=== PATIENT | female | born 1985 | race American Indian/Alaskan Native ===

== ENCOUNTER 2019-06-24 19:34 | Emergency (ER) | payer MEDICAID, OTHER ==
--- NOTE | 2019-06-24 20:21 | Event Note ---
ED Screening Note Date of service: 06/24/19 Time: 20:20 ED Screening Note: 34 y o female presents with low bilateral pelvic pain with tender lumps This initial assessment/diagnostic orders/clinical plan/treatment(s) is/are subject to change based on patients health status, clinical progression and re- assessment by fellow clinical providers in the ED. Further treatment and workup at subsequent clinical providers discretion. Patient/guardian urged not to elope from the ED as their condition may be serious if not clinically assessed and managed. Initial orders include: ua, upt pelv us acc eval
[2019-06-24 20:47] LABS: HCG Qualitative,Urine Negative (Negative)
[2019-06-24 20:50] LABS: Bilirubin,Urine NEG (Negative); Blood,Urine MOD (Negative); Color,Urine Yellow (Yellow); Mucus,Urine 3+ /HPF; Protein,Urine <15 mg/dL mg/dL (Negative); Urobilinogen,Urine < 2.0 mg/dL (<2.0)
--- NOTE | 2019-06-24 23:13 | Ultrasound Report ---
Pelvic ultrasound INDICATION: Pelvic pain COMPARISON: None TECHNIQUE: Transabdominal study was performed. FINDINGS: Uterus measures 9.7 x 4.7 x 5.1 cm. Endometrial stripe measures 10 mm. Arising posteriorly from the fundus of the uterus a 4.8 cm leiomyoma is noted. Left ovary measures 3.3 cm in length and shows no abnormalities. Right ovary measures 3 cm in length and shows no abnormalities. No adnexal masses are seen. No free fluid is noted. IMPRESSION: No acute abnormalities are seen. Uterine leiomyoma. Signer Name: Bobby Hernandez MD Signed: 06/24/2019 11:09 PM Workstation Name: [id number]
--- NOTE | 2019-06-24 23:38 | Emergency Department Report ---
ED Abdominal Pain HPI - General Chief Complaint: Abdominal Pain Stated Complaint: LUMP ABDOMEN Time Seen by Provider: 06/24/19 20:18 Source: patient Mode of arrival: Ambulatory Limitations: No Limitations - History of Present Illness Initial Comments: Patient is a 34-year-old female who presents to emergency room with complaints of suprapubic abdominal discomfort that began several months ago. She states that she feels 2 small lumps to her lower abdomen. Patient denies any nausea, vomiting, fever, urinary symptoms, vaginal discharge, vaginal complaints. States that she does not have an MAILROOM ASSISTANT. She states that she is currently on her menstrual cycle. She denies any past medical history or allergies to medications. She states she has a past surgical history of a and tubal ligation. - Related Data Allergies Allergy/AdvReac Type Severity Reaction Status Date / Time orange Allergy Unknown Verified 06/24/19 19:38 ED Review of Systems ROS: Stated complaint: LUMP ABDOMEN Other details as noted in HPI Comment: All other systems reviewed and negative ED Past Medical Hx - Social History Smoking Status: Never Smoker Substance Use Type: Alcohol ED Physical Exam - General Limitations: No Limitations General appearance: alert, in no apparent distress - Head Head exam: Present: atraumatic, normocephalic - Eye Eye exam: Present: normal appearance - ENT ENT exam: Present: mucous membranes moist - Respiratory Respiratory exam: Present: normal lung sounds bilaterally. Absent: respiratory distress, wheezes, rales, rhonchi, stridor, chest wall tenderness, accessory muscle use, decreased breath sounds, prolonged expiratory - Cardiovascular Cardiovascular Exam: Present: regular rate, normal rhythm, normal heart sounds. Absent: systolic murmur, diastolic murmur, rubs, gallop - GI/Abdominal GI/Abdominal exam: Present: soft, normal bowel sounds, other (well healed surgical incision to the lower abdomen consistent wtih , two small areas of fibrous tissue to the end of each side of the prior incision). Absent: distended, tenderness, guarding, rebound, rigid - Neurological Exam Neurological exam: Present: alert, oriented X3 - Psychiatric Psychiatric exam: Present: normal affect, normal mood - Skin Skin exam: Present: warm, dry, intact ED Course Vital Signs 06/24/19 06/25/19 06/25/19 20:18 00:32 03:08 Temperature 99.1 F Pulse Rate 71 61 61 Respiratory 18 16 16 Rate Blood Pressure 150/104 Blood Pressure 153/96 153/96 [Right] O2 Sat by Pulse 97 99 99 Oximetry ED Medical Decision Making - Radiology Data Radiology results: report reviewed Pelvic ultrasound INDICATION: Pelvic pain COMPARISON: None TECHNIQUE: Transabdominal study was performed. FINDINGS: Uterus measures 9.7 x 4.7 x 5.1 cm. Endometrial stripe measures 10 mm. Arising posteriorly from the fundus of the uterus a 4.8 cm leiomyoma is noted. Left ovary measures 3.3 cm in length and shows no abnormalities. Right ovary measures 3 cm in length and shows no abnormalities. No adnexal masses are seen. No free fluid is noted. IMPRESSION: No acute abnormalities are seen. Uterine leiomyoma. Signer Name: Bobby Hernandez MD Signed: 06/24/2019 11:09 PM Workstation Name: [id number] Transcribed By: WILLIE Dictated By: Bobby Hernandez MD Electronically Authenticated By: Bobby Hernandez MD Signed Date/Time: 06/24/19 3761 - Medical Decision Making Patient is a 34-year-old female who presents to emergency room with complaints of suprapubic abdominal discomfort that began several months ago. She states that she feels 2 small lumps to her lower abdomen. Patient denies any nausea, vomiting, fever, urinary symptoms, vaginal discharge, vaginal complaints. States that she does not have an MAILROOM ASSISTANT. She states that she is currently on her menstrual cycle. She denies any past medical history or allergies to medications. She states she has a past surgical history of a and tubal ligation. on exam: well healed surgical incision to the lower abdomen consistent wtih , two small areas of fibrous tissue to the end of each side of the prior incision, appears that the patients lumps she was concerned about are fibrous scar tissue. UA without evidence of UTI. urine preg is negative. pelvic US: No acute abnormalities are seen. Uterine leiomyoma. discussed US results with pt. advised patient to take Tylenol or ibuprofen for pain relief. may use ice packs or heating pads to the lower abdomen. follow Up with an MAILROOM ASSISTANT in the next 2-3 days. Return to the emergency room for any new or worsening symptoms. Critical care attestation.: If time is entered above; I have spent that time in minutes in the direct care of this critically ill patient, excluding procedure time. ED Disposition Clinical Impression: Lower abdominal pain, Scar tissue Uterine fibroid Qualifiers: Uterine leiomyoma location: unspecified location Qualified Code(s): D25.9 - Leiomyoma of uterus, unspecified Disposition: TO HOME OR SELFCARE Is pt being admited?: No Does the pt Need Aspirin: No Condition: Stable Instructions: Uterine Fibroids (ED), Abdominal Pain (ED) Additional Instructions: Tylenol or ibuprofen for pain relief. may use ice packs or heating pads to the lower abdomen. follow Up with an MAILROOM ASSISTANT in the next 2-3 days. Return to the emergency room for any new or worsening symptoms. Referrals: [facility] [Provider Group] - 2-3 Days [facility] [Provider Group] - 2-3 Days [facility] [Provider Group] - 2-3 Days Forms: Work/School Release Form(ED) Time of Disposition: 23:40 Print Language: BRAZILIAN
[2019-06-25 00:33] VITALS: BP 153/96
== END 2019-06-25 00:35 | disposition home or self-care (01) ==
LOC: ED 19:34
DX: D25.9 Leiomyoma of uterus, unspecified (principal); Z91.018 Allergy to other foods
CPT/HCPCS: 76856; 81001; 81025; 99284

== ENCOUNTER 2019-08-13 10:54 | Emergency (ER) | payer OTHER ==
--- NOTE | 2019-08-13 11:26 | Event Note ---
ED Screening Note Date of service: 08/13/19 Time: :22 ED Screening Note: 34 y o female presents with cough, fever x 2 days presents with all 3 shildren with similar symptoms PMH: CHF/HTN, High Cholesterol, no current meds, recent move from [place] cc of generalized pain This initial assessment/diagnostic orders/clinical plan/treatment(s) is/are subject to change based on patients health status, clinical progression and re- assessment by fellow clinical providers in the ED. Further treatment and workup at subsequent clinical providers discretion. Patient/guardian urged not to elope from the ED as their condition may be serious if not clinically assessed and managed. Initial orders include: cxr meds acc eval
--- NOTE | 2019-08-13 12:37 | XRay Report ---
CHEST 2 VIEWS INDICATION / CLINICAL INFORMATION: cough/fever. COMPARISON: None available. FINDINGS: SUPPORT DEVICES: None. HEART / MEDIASTINUM: No significant abnormality. LUNGS / PLEURA: No significant pulmonary or pleural abnormality. No pneumothorax. ADDITIONAL FINDINGS: No significant additional findings. IMPRESSION: 1. No acute abnormality of the chest. Signer Name: Fahad Urbina MD Signed: 08/13/2019 12:32 PM Workstation Name: [id number]
--- NOTE | 2019-08-13 13:07 | Emergency Department Report ---
- General Chief Complaint: Upper Respiratory Infection Stated Complaint: FLU SX Time Seen by Provider: 08/13/19 12:28 Source: patient Mode of arrival: Ambulatory Limitations: No Limitations - History of Present Illness Initial Comments: 34-year-old female presents emergency department with a history of cough congestion coryza myalgias chills the nausea and a few episodes of vomiting with the coughing spells. No hemoptysis, hematemesis nor hematochezia. No rash, sweats no chest pain. MD Complaint: cough, rhinorrhea, nasal congestion Severity: mild Quality: dull Consistency: constant Improves With: nothing Worsens With: nothing Associated Symptoms: chills, rhinorrhea, nasal congestion. denies: myalgias, diaphoresis, shortness of breath, abdominal pain, dysuria, right sweats, weight loss, epistaxis, hoarseness - Related Data Previous Rx's Medication Instructions Recorded Last Taken Type Ondansetron [Zofran ODT TAB] 8 mg PO Q12HR #14 tab.rapdis 08/13/19 Unknown Rx guaiFENesin/CODEINE [Robitussin AC] 5 ml PO Q6H PRN #120 ml 08/13/19 Unknown Rx predniSONE [Deltasone] 50 mg PO QDAY #5 tab 08/13/19 Unknown Rx Allergies Allergy/AdvReac Type Severity Reaction Status Date / Time orange Allergy Unknown Verified 06/24/19 19:38 ED Review of Systems ROS: Stated complaint: FLU SX Other details as noted in HPI Comment: All other systems reviewed and negative ED Past Medical Hx - Past Medical History Previous Medical History?: Yes Hx Hypertension: Yes Hx Congestive Heart Failure: Yes Additional medical history: ELEVATED CHOLESTEROL, VISION PROBLEMS - Surgical History Past Surgical History?: Yes Additional Surgical History: C section=-3. Gastric sleeve,ABLASIONS,TUBILIGATION, HERNIA REPAIR - Social History Smoking Status: Never Smoker Substance Use Type: Alcohol - Medications Home Medications: Home Medications Medication Instructions Recorded Confirmed Last Taken Type Ondansetron [Zofran ODT TAB] 8 mg PO Q12HR #14 tab.rapdis 08/13/19 Unknown Rx guaiFENesin/CODEINE [Robitussin AC] 5 ml PO Q6H PRN #120 ml 08/13/19 Unknown Rx predniSONE [Deltasone] 50 mg PO QDAY #5 tab 08/13/19 Unknown Rx ED Physical Exam - General Limitations: No Limitations General appearance: alert, in no apparent distress - Head Head exam: Present: atraumatic, normocephalic - Eye Eye exam: Present: normal appearance, PERRL, EOMI - ENT ENT exam: Present: mucous membranes moist, other (nasal congestion bilaterally and posterior pharyngeal drainage no exudate. Tongue and uvula are midline. Airway patent). Absent: TM's normal bilaterally (small effusion to the left tympanic membrane) - Neck Neck exam: Present: normal inspection - Respiratory Respiratory exam: Present: normal lung sounds bilaterally. Absent: respiratory distress - Cardiovascular Cardiovascular Exam: Present: regular rate, normal rhythm. Absent: systolic murmur, diastolic murmur, rubs, gallop - GI/Abdominal GI/Abdominal exam: Present: soft, normal bowel sounds - Extremities Exam Extremities exam: Present: normal inspection - Back Exam Back exam: Present: normal inspection - Neurological Exam Neurological exam: Present: alert, oriented X3 - Psychiatric Psychiatric exam: Present: normal affect, normal mood - Skin Skin exam: Present: warm, dry, intact, normal color. Absent: rash ED Course Vital Signs 08/13/19 11:21 Temperature 100.3 F H Pulse Rate 110 H Respiratory 18 Rate Blood Pressure 155/103 O2 Sat by Pulse 98 Oximetry ED Medical Decision Making - Radiology Data Radiology results: report reviewed [address] [address] XRay Report Signed Patient: DASH ABRAMS MR#: [id number] : 1985 Acct:[id number] Age/Sex: 34 / F ADM Date: 08/13/19 Loc: ED Attending Dr: Ordering Physician: MAKENZIE MORA Date of Service: 08/13/19 Procedure(s): XR chest routine 2V Accession Number(s): [id number] cc: MAKENZIE MORA Fluoro Time In Minutes: CHEST 2 VIEWS INDICATION / CLINICAL INFORMATION: cough/fever. COMPARISON: None available. FINDINGS: SUPPORT DEVICES: None. HEART / MEDIASTINUM: No significant abnormality. LUNGS / PLEURA: No significant pulmonary or pleural abnormality. No pneumothorax. ADDITIONAL FINDINGS: No significant additional findings. IMPRESSION: 1. No acute abnormality of the chest. Signer Name: Fahad Urbina MD Signed: 08/13/2019 12:32 PM Workstation Name: [id number] Transcribed By: MN Dictated By: Fahad Urbina MD Electronically Authenticated By: Fahad Urbina MD Signed Date/Time: 08/13/191231 DD/ 123 - Medical Decision Making 35-year-old [place] female as well as department complaining of cough congestion coryza with a sudden onset. Chest x-ray shows no acute processes. She has multiple sick contacts No evidence of encephalitis, bacterial meningitis, pneumonia, soft tissue infection, joint infection, meningococcemia, intraabdominal infection such as appendicitis, cholecystitis, no evidence of UTI, no risk factors or findings concerning for endocarditis, no evidence of lyme disease. Critical care attestation.: If time is entered above; I have spent that time in minutes in the direct care of this critically ill patient, excluding procedure time. ED Disposition Clinical Impression: Viral syndrome Disposition: DC-01 TO HOME OR SELFCARE Is pt being admited?: No Does the pt Need Aspirin: No Condition: Stable Instructions: Viral Syndrome (ED), Acute Nausea and Vomiting (ED), Cold Symptoms (ED), Acute Cough (ED) Additional Instructions: Follow up with your Primary Care Doctor within 48-72 hours for further evaluation. Please rest and drink plenty of fluids to remain hydrated. Please wash your hands regularly. Please take Acetaminophen 650 mg every 6 hours for pain or temp greater than 100. If you have any worsening or continued fever, chills, weakness, nausea, vomiting, abdominal pain return to ED Referrals: YAYO MELVIN MD [Primary Care Provider] - 3-5 Days [facility] [Provider Group] - 3-5 Days
[2019-08-13] MEDS ORDERED: predniSONE 50 MG TAB PO STA (13:38)
[2019-08-13 14:45] VITALS: BP 146/96
== END 2019-08-13 14:43 | disposition home or self-care (01) ==
LOC: ED 10:54
DX: B34.9 Viral infection, unspecified (principal); I11.0 Hypertensive heart disease with heart failure; I50.9 Heart failure, unspecified; E78.00 Pure hypercholesterolemia, unspecified; Z91.018 Allergy to other foods; Z79.899 Other long term (current) drug therapy
CPT/HCPCS: 71046; 99283; J7512

== ENCOUNTER 2019-09-29 19:43 | Emergency (ER) | payer OTHER ==
[2019-09-29 20:17] VITALS: BP 153/103
--- NOTE | 2019-09-29 20:28 | Emergency Department Report ---
Blank Doc - Documentation Documentation: 34-year-old female that presents with RLQ pain and vaginal discharge. This initial assessment/diagnostic orders/clinical plan/treatment(s) is/are subject to change based on patient's health status, clinical progression and re- assessment by fellow clinical providers in the ED. Further treatment and workup at subsequent clinical providers discretion. Patient/guardians urged not to elope from the ED as their condition may be serious if not clinically assessed and managed. Initial orders include: 1- Patient sent to ACC for further evaluation and treatment 2- labs 3- UA
[2019-09-29 22:19] LABS: Bilirubin,Urine NEG (Negative); Blood,Urine NEG (Negative); Color,Urine Yellow (Yellow); Mucus,Urine 2+ /HPF; Protein,Urine <15 mg/dL mg/dL (Negative); Urobilinogen,Urine < 2.0 mg/dL (<2.0)
[2019-09-29 23:56] LABS: Basophils # (Auto) 0.1 K/mm3 (0.0-0.1); Basophils % (Auto) 0.8 % (0.0-1.8); Eosinophils # (Auto) 0.2 K/mm3 (0.0-0.4); Eosinophils % (Auto) 2.4 % (0.0-4.3); Hemoglobin 12.3 gm/dl (10.1-14.3); Lymphocytes # (Auto) 2.4 K/mm3 (1.2-5.4); Lymphocytes % (Auto) 30.2 % (13.4-35.0); Mean Corpuscular HGB Conc 33 % (30-34); Mean Corpuscular Volume 88 fl (79-97); Monocytes # (Auto) 0.5 K/mm3 (0.0-0.8); Monocytes % (Auto) 5.7 % (0.0-7.3); Platelet Count 201 K/mm3 (140-440); Red Blood Count 4.23 M/mm3 (3.65-5.03); Red Cell Distribution Width 14.6 % (13.2-15.2)
[2019-09-30 00:21] LABS: Alanine Aminotransferase 9 units/L (7-56); Albumin 3.9 g/dL (3.9-5); BUN/Creatinine Ratio 14; Blood Urea Nitrogen 14 mg/dL (7-17); Calcium 8.9 mg/dL (8.4-10.2); Hemolysis Index 6
[2019-09-30] MEDS ORDERED: SODIUM CHLORIDE 0.9% 1000 ML 1,000 ML IV ONE (01:24)
[2019-09-30] MEDS ORDERED: ONDANSETRON 4 MG/2 ML INJ IV ONE (01:24)
[2019-09-30] MEDS ORDERED: MORPHINE 4 MG/1 ML INJ IV ONE (01:24)
--- NOTE | 2019-09-30 02:52 | Cat Scan Report ---
CT ABDOMEN AND PELVIS WITH IV CONTRAST INDICATION: Generalized abdominal pain. Right lower quadrant abdominal pain TECHNIQUE: Following the administration of intravenous contrast, multiple axial CT images of the abdo men and pelvis were acquired. Sagittal and coronal reformats were obtained. All CT performed at this facility utilize dose reduction techniques including automated exposure control, iterative reconstru ction and weight based dosing when appropriate to reduce patient radiation dose to as low as reasonab ly achievable. COMPARISON: None FINDINGS: Limited imaging of the bilateral lung bases demonstrates no acute abnormality. Abdomen: Postsurgical changes of the stomach are noted. The liver, spleen, pancreas, bilateral adrena l glands and bilateral kidneys show no evidence of acute abnormality. There are a few loops of mildly prominent fluid-filled small bowel throughout the central abdomen without evidence of bowel obstruct ion. No free air is identified. The appendix is not definitely identified. Pelvis: There is a small amount of free pelvic fluid. The urinary bladder appears normal. Bones and Soft Tissues: Evaluation of bony structures demonstrates no evidence of acute bony abnormal ity. Evaluation of soft tissue structures demonstrate a rounded 3.6 cm soft tissue density within the left anterior lower abdominal wall with mild associated inflammatory changes. There is a similar sma ller density within the right anterior lower abdominal wall soft tissues measuring 1.7 cm. IMPRESSION: 1. Few loops of mildly prominent fluid-filled small bowel throughout the abdomen. This is a nonspecif ic finding but can suggest enteritis in the appropriate clinical setting. 2. Two rounded soft tissue densities within the lower anterior abdominal wall with the left being lar yogesh than the right. These demonstrate inflammatory changes and therefore clinical correlation is jessica mmended for possible superficial soft tissue infectious or inflammatory process. Signer Name: Janny Walter MD Signed: 09/30/2019 2:48 AM Workstation Name: [id number]
--- NOTE | 2019-09-30 02:59 | Emergency Department Report ---
ED Abdominal Pain HPI - General Chief Complaint: Urogenital-Female Stated Complaint: ABDOMINAL PAIN Time Seen by Provider: 09/29/19 20:27 Source: patient Mode of arrival: Ambulatory Limitations: No Limitations - History of Present Illness Initial Comments: Patient is a 35-year-old Vietnamese female with no past medical history who presents to the ED with complaint of acute onset persistent severe right lower quadrant pain that radiates to the suprapubic area with nausea for the last 12 hours worse in the last 8 hours. Patient denies fever, chills, vomiting, diarrhea, dysuria, urinary frequency and urgency, dyspareunia, vaginal bleeding, vaginal discharge, low back pain, fall, traumatic injury, hematochezia, hematuria, chest pain or shortness of breath MD Complaint: abdominal pain, other (nausea) -: Sudden, hour(s) (12) Location: RLQ, suprapubic Radiation: RLQ, suprapubic Migration to: no migration Severity scale (0 -10): 10 Quality: cramping, aching, sharp Consistency: constant Improves With: nothing Worsens With: movement Associated Symptoms: denies other symptoms, nausea, anorexia. denies: vomiting, diarrhea, fever, chills, constipation, dysuria, hematemesis, hematochezia, melena, hematuria, syncope, other - Related Data LMP Date: 09/24/19 Previous Rx's Medication Instructions Recorded Last Taken Type Ondansetron [Zofran ODT TAB] 8 mg PO Q12HR #14 tab.rapdis 08/13/19 Unknown Rx guaiFENesin/CODEINE [Robitussin AC] 5 ml PO Q6H PRN #120 ml 08/13/19 Unknown Rx predniSONE [Deltasone] 50 mg PO QDAY #5 tab 08/13/19 Unknown Rx DOXYCYCLINE Hyclate [Vibramycin 100 mg PO Q12HR #20 capsule 09/30/19 Unknown Rx CAP] Ketorolac [Toradol] 10 mg PO Q8H PRN #20 tablet 09/30/19 Unknown Rx Ondansetron [Zofran Odt] 4 mg PO Q6HR PRN #15 tab.rapdis 09/30/19 Unknown Rx metroNIDAZOLE [Flagyl] 500 mg PO Q12HR #14 tab 09/30/19 Unknown Rx traMADoL [Ultram] 50 mg PO Q6HR PRN #12 tablet 09/30/19 Unknown Rx Allergies Allergy/AdvReac Type Severity Reaction Status Date / Time orange Allergy Unknown Verified 09/29/19 19:47 ED Review of Systems ROS: Stated complaint: ABDOMINAL PAIN Other details as noted in HPI Constitutional: weakness. denies: chills, fever Eyes: denies: eye pain, eye discharge, vision change ENT: denies: ear pain, throat pain Respiratory: denies: cough, shortness of breath, wheezing Cardiovascular: denies: chest pain, palpitations Endocrine: no symptoms reported Gastrointestinal: abdominal pain (suprapubic and right lower quadrant pain), nausea. denies: diarrhea Genitourinary: denies: urgency, dysuria, discharge Musculoskeletal: denies: back pain, joint swelling, arthralgia Skin: denies: rash, lesions Neurological: denies: headache, weakness, paresthesias Psychiatric: denies: anxiety, depression Hematological/Lymphatic: denies: easy bleeding, easy bruising ED Past Medical Hx - Past Medical History Previous Medical History?: Yes Hx Hypertension: Yes Hx Congestive Heart Failure: Yes Additional medical history: ELEVATED CHOLESTEROL, VISION PROBLEMS - Surgical History Past Surgical History?: Yes Additional Surgical History: C section=-3. Gastric sleeve,ABLASIONS,TUBILIGATION, HERNIA REPAIR - Social History Smoking Status: Never Smoker - Medications Home Medications: Home Medications Medication Instructions Recorded Confirmed Last Taken Type Ondansetron [Zofran ODT TAB] 8 mg PO Q12HR #14 tab.rapdis 08/13/19 Unknown Rx guaiFENesin/CODEINE [Robitussin AC] 5 ml PO Q6H PRN #120 ml 08/13/19 Unknown Rx predniSONE [Deltasone] 50 mg PO QDAY #5 tab 08/13/19 Unknown Rx DOXYCYCLINE Hyclate [Vibramycin 100 mg PO Q12HR #20 capsule 09/30/19 Unknown Rx CAP] Ketorolac [Toradol] 10 mg PO Q8H PRN #20 tablet 09/30/19 Unknown Rx Ondansetron [Zofran Odt] 4 mg PO Q6HR PRN #15 tab.rapdis 09/30/19 Unknown Rx metroNIDAZOLE [Flagyl] 500 mg PO Q12HR #14 tab 09/30/19 Unknown Rx traMADoL [Ultram] 50 mg PO Q6HR PRN #12 tablet 09/30/19 Unknown Rx ED Physical Exam - General Limitations: No Limitations General appearance: alert, in no apparent distress - Head Head exam: Present: atraumatic, normocephalic, normal inspection - Eye Eye exam: Present: normal appearance, PERRL, EOMI Pupils: Present: normal accommodation - ENT ENT exam: Present: normal exam, normal orophraynx, mucous membranes moist, TM's normal bilaterally, normal external ear exam - Neck Neck exam: Present: normal inspection, full ROM - Respiratory Respiratory exam: Present: normal lung sounds bilaterally. Absent: respiratory distress, wheezes, rales, rhonchi, chest wall tenderness, accessory muscle use, prolonged expiratory - Cardiovascular Cardiovascular Exam: Present: regular rate, normal rhythm, normal heart sounds. Absent: systolic murmur, diastolic murmur, rubs, gallop - GI/Abdominal GI/Abdominal exam: Present: soft, tenderness (palpable right lower quadrant and suprapubic tenderness with mild guarding but no rebound), guarding, normal bowel sounds. Absent: rebound, hyperactive bowel sounds, hypoactive bowel sounds - Speculum exam: Present: vaginal discharge, cervical discharge Bi-manual exam: Present: cervical motion tendernes, adnexal tenderness (right), uterine tenderness, other (female RN present during the pelvic exam) - Extremities Exam Extremities exam: Present: normal inspection - Back Exam Back exam: Present: normal inspection - Neurological Exam Neurological exam: Present: alert, oriented X3 - Psychiatric Psychiatric exam: Present: normal affect, normal mood - Skin Skin exam: Present: warm, dry, intact, normal color. Absent: rash ED Course Vital Signs 09/29/19 09/30/19 19:47 02:16 Temperature 99.7 F H Pulse Rate 76 Respiratory 18 20 Rate Blood Pressure 153/103 O2 Sat by Pulse 98 Oximetry ED Medical Decision Making - Lab Data Result diagrams: 09/29/19 23:12 09/29/19 23:12 - Radiology Data Radiology results: report reviewed, image reviewed Findings [facility] [address] [place] [address] Cat Scan Report Signed Patient: DASH ABRAMS MR#: [id number] : 1985 Acct:[id number] Age/Sex: 34 / F ADM Date: 09/29/19 Loc: ED Attending Dr: Ordering Physician: MAKENZIE SCHULTZ Date of Service: 09/30/19 Procedure(s): CT abdomen pelvis w con Accession Number(s): [id number] cc: MAKENZIE SCHULTZ CT ABDOMEN AND PELVIS WITH IV CONTRAST INDICATION: Generalized abdominal pain. Right lower quadrant abdominal pain TECHNIQUE: Following the administration of intravenous contrast, multiple axial CT images of the abdomen and pelvis were acquired. Sagittal and coronal reformats were obtained. All CT performed at this facility utilize dose reduction techniques including automated exposure control, iterative reconstruction and weight based dosing when appropriate to reduce patient radiation dose to as low as reasonably achievable. COMPARISON: None FINDINGS: Limited imaging of the bilateral lung bases demonstrates no acute abnormality. Abdomen: Postsurgical changes of the stomach are noted. The liver, spleen, pancreas, bilateral adrenal glands and bilateral kidneys show no evidence of acute abnormality. There are a few loops of mildly prominent fluid-filled small bowel throughout the central abdomen without evidence of bowel obstruction. No free air is identified. The appendix is not definitely identified. Pelvis: There is a small amount of free pelvic fluid. The urinary bladder appears normal. Bones and Soft Tissues: Evaluation of bony structures demonstrates no evidence of acute bony abnormality. Evaluation of soft tissue structures demonstrate a rounded 3.6 cm soft tissue density within the left anterior lower abdominal wall with mild associated inflammatory changes. There is a similar smaller density within the right anterior lower abdominal wall soft tissues measuring 1.7 cm. IMPRESSION: 1. Few loops of mildly prominent fluid-filled small bowel throughout the abdomen. This is a nonspecific finding but can suggest enteritis in the appropriate clinical setting. 2. Two rounded soft tissue densities within the lower anterior abdominal wall with the left being larger than the right. These demonstrate inflammatory changes and therefore clinical correlation is recommended for possible superficial soft tissue infectious or inflammatory process. Signer Name: Janny Walter MD Signed: 09/30/2019 2:48 AM Workstation Name: [id number] Transcribed By: EB Dictated By: Janny Walter MD Electronically Authenticated By: Janny Walter MD Signed Date/Time: 09/30/19247 DD/ 9 TD/TT: - Medical Decision Making This is a 32-year-old -Vietnamese female who presented to the ED with right lower quadrant and suprapubic pain with nausea for 12 hours. In the ED, patient is alert and oriented 3 and is not in distress with normal vital signs. Lab test results were reviewed and all nonactionable including urinalysis. Abdomen pelvic CT scan with contrast shows few loops of mildly prominent fluid- filled small bowel throughout the abdomen. This is a nonspecific finding but can suggest enteritis in the appropriate clinical setting. There is also two rounded soft tissue densities within the lower anterior abdominal wall with the left being larger than the right. These demonstrate inflammatory changes and therefore clinical correlation is recommended for possible superficial soft tissue infectious or inflammatory process. There is no obvious cellulitic changes or tenderness in the right and left lower abdominal wall on physical ex am although the imaging report suggested that there may be some inflammatory process. The area of concern is mainly from a past site which is nontender and with no erythematous fluctuant rashes. The physical exam is however unremarkable except for the positive findings in the pelvic exam. Pelvic exam in the presence of a female RN respite coordinator was significant for signs of acute PID characterized by severe cervical motion tenderness and right adnexal tenderness. Patient was treated for pain in the ED and based on the pelvic exam findings, patient was started on antibiotics for PID in the ED and was discharged home on more antibiotics and pain medications. Patient was advised to return to the emergency department immediately if symptoms get worse. Patient was otherwise advised to follow-up with her primary care physician in 5-7 days for reevaluation. - Differential Diagnosis PID; Appendicitis; UTI; Ovarian cyst; Tubovarian abscess; Bacterial vaginos Critical care attestation.: If time is entered above; I have spent that time in minutes in the direct care of this critically ill patient, excluding procedure time. ED Disposition Clinical Impression: Acute pelvic inflammatory disease (PID), Bacterial vaginosis Disposition: DC-01 TO HOME OR SELFCARE Is pt being admited?: No Does the pt Need Aspirin: No Condition: Stable Instructions: Bacterial Vaginosis (ED), Pelvic Inflammatory Disease (ED) Additional Instructions: Take medications with food, drink plenty of fluids and follow-up with your primary care physician in 5-7 days. Return to the ED immediately if symptoms get worse. Prescriptions: metroNIDAZOLE [Flagyl] 500 mg PO Q12HR #14 tab Ketorolac [Toradol] 10 mg PO Q8H PRN #20 tablet PRN Reason: Pain traMADoL [Ultram] 50 mg PO Q6HR PRN #12 tablet PRN Reason: Pain DOXYCYCLINE Hyclate [Vibramycin CAP] 100 mg PO Q12HR #20 capsule Ondansetron [Zofran Odt] 4 mg PO Q6HR PRN #15 tab.rapdis PRN Reason: Nausea Referrals: WILLY ORTIZ MD [Staff Physician] - 7-10 days Forms: STI Treatment and Prevention Time of Disposition: 03:12 Print Language: PARAGUAYAN
[2019-09-30] MEDS ORDERED: KETOROLAC 30 MG/1 ML INJ IV ONE (03:03)
[2019-09-30] MEDS ORDERED: AZITHROMYCIN 250 MG TAB PO ONE (03:03)
== END 2019-09-30 04:30 | disposition home or self-care (01) ==
LOC: ED 19:43
DX: N73.9 Female pelvic inflammatory disease, unspecified (principal); N76.0 Acute vaginitis; I11.0 Hypertensive heart disease with heart failure; I50.9 Heart failure, unspecified
CPT/HCPCS: 36415; 74177; 80053; 81001; 84703; 85025; 87210; 87591; 96365; 96375; 99284; J0696; J1885; J2270; J2405; J7030; Q9967

== ENCOUNTER 2021-04-06 13:02 | Emergency (ER) | payer OTHER ==
[2021-04-06 13:24] VITALS: BP 190/120
== END 2021-04-06 14:34 ==
LOC: ED 13:02
DX: R51.9 Headache, unspecified (principal); Z53.21 Procedure and treatment not carried out due to patient leaving prior to being seen by health care provider

== ENCOUNTER 2021-06-29 09:42 | Emergency (ER) | payer OTHER ==
[2021-06-29 10:02] VITALS: BP 147/100
--- NOTE | 2021-06-29 11:02 | Emergency Department Report ---
ED Abdominal Pain HPI - General Chief Complaint: Abdominal Pain Stated Complaint: SWOLLWN ABD/ PAIN IN BACK/ VOMITTING Time Seen by Provider: 06/29/21 10:08 Source: patient Mode of arrival: Ambulatory Limitations: No Limitations - History of Present Illness Initial Comments: 36 yo obese female with hx gastric sleeve comes to ER with LLQ pain- although s he has had it for a while in the last weeks the pain is increasing. Endorses nausea. No vomiting. No diarrhea. No fever or chills. no dysuria. No back pain. No vag discharge or bleeding. Pt ambulatory and in nad in triage. LLQ mass noted on exam. Pt reports she does take her vitamins sp sleeve. She does not seem to follow up with pcp or GI. MD Complaint: abdominal pain -: Gradual Location: LLQ Radiation: none Migration to: no migration Severity: severe Quality: cramping Consistency: constant Improves With: nothing Worsens With: nothing Associated Symptoms: denies other symptoms, nausea. denies: vomiting, diarrhea, fever, chills, constipation, dysuria, hematemesis, hematochezia, melena, hematuria, anorexia, syncope - Related Data LMP (females 10-50): this week Previous Rx's Medication Instructions Recorded Last Taken Type Ondansetron [Zofran ODT TAB] 8 mg PO Q12HR #14 tab.rapdis 08/13/19 Unknown Rx guaiFENesin/CODEINE [Robitussin AC] 5 ml PO Q6H PRN #120 ml 08/13/19 Unknown Rx predniSONE [Deltasone] 50 mg PO QDAY #5 tab 08/13/19 Unknown Rx DOXYCYCLINE Hyclate [Vibramycin 100 mg PO Q12HR #20 capsule 09/30/19 Unknown Rx CAP] Ketorolac [Toradol] 10 mg PO Q8H PRN #20 tablet 09/30/19 Unknown Rx Ondansetron [Zofran Odt] 4 mg PO Q6HR PRN #15 tab.rapdis 09/30/19 Unknown Rx metroNIDAZOLE [Flagyl] 500 mg PO Q12HR #14 tab 09/30/19 Unknown Rx traMADoL [Ultram] 50 mg PO Q6HR PRN #12 tablet 09/30/19 Unknown Rx Allergies Allergy/AdvReac Type Severity Reaction Status Date / Time orange Allergy Unknown Verified 09/29/19 19:47 ED Review of Systems ROS: Stated complaint: SWOLLWN ABD/ PAIN IN BACK/ VOMITTING Other details as noted in HPI Comment: All other systems reviewed and negative ED Past Medical Hx - Past Medical History Previous Medical History?: Yes Hx Hypertension: Yes Hx Congestive Heart Failure: Yes Hx Asthma: Yes Additional medical history: ELEVATED CHOLESTEROL, VISION PROBLEMS - Surgical History Past Surgical History?: Yes Additional Surgical History: C section=-3. Gastric sleeve,ABLASIONS,TUBILIGATION, HERNIA REPAIR - Family History Family history: no significant - Social History Smoking Status: Never Smoker Substance Use Type: None - Medications Home Medications: Home Medications Medication Instructions Recorded Confirmed Last Taken Type Ondansetron [Zofran ODT TAB] 8 mg PO Q12HR #14 tab.rapdis 08/13/19 Unknown Rx guaiFENesin/CODEINE [Robitussin AC] 5 ml PO Q6H PRN #120 ml 08/13/19 Unknown Rx predniSONE [Deltasone] 50 mg PO QDAY #5 tab 08/13/19 Unknown Rx DOXYCYCLINE Hyclate [Vibramycin 100 mg PO Q12HR #20 capsule 09/30/19 Unknown Rx CAP] Ketorolac [Toradol] 10 mg PO Q8H PRN #20 tablet 09/30/19 Unknown Rx Ondansetron [Zofran Odt] 4 mg PO Q6HR PRN #15 tab.rapdis 09/30/19 Unknown Rx metroNIDAZOLE [Flagyl] 500 mg PO Q12HR #14 tab 09/30/19 Unknown Rx traMADoL [Ultram] 50 mg PO Q6HR PRN #12 tablet 09/30/19 Unknown Rx ED Physical Exam - General Limitations: No Limitations General appearance: alert, in no apparent distress - Head Head exam: Present: atraumatic, normocephalic - Eye Eye exam: Present: normal appearance - ENT ENT exam: Present: mucous membranes moist - Neck Neck exam: Present: normal inspection - Respiratory Respiratory exam: Present: normal lung sounds bilaterally. Absent: respiratory distress - Cardiovascular Cardiovascular Exam: Present: regular rate, normal rhythm. Absent: systolic murmur, diastolic murmur, rubs, gallop - GI/Abdominal GI/Abdominal exam: Present: soft, normal bowel sounds, mass (llq; appears to be in subcutaneous area under incision ). Absent: distended, tenderness, guarding, rebound, rigid, diminished bowel sounds, hyperactive bowel sounds, hypoactive bowel sounds, organomegaly - Extremities Exam Extremities exam: Present: normal inspection - Back Exam Back exam: Present: normal inspection - Neurological Exam Neurological exam: Present: alert, oriented X3 - Psychiatric Psychiatric exam: Present: normal affect, normal mood - Skin Skin exam: Present: warm, dry, intact, normal color. Absent: rash ED Course Vital Signs 06/29/21 09:59 Temperature 98.4 F Pulse Rate 75 Respiratory 20 Rate Blood Pressure 147/100 O2 Sat by Pulse 99 Oximetry ED Medical Decision Making - Lab Data Result diagrams: 06/29/21 10:34 06/29/21 10:34 - Radiology Data Radiology results: report reviewed, image reviewed [facility] - Medical Decision Making Lab Results 06/29/21 06/29/21 06/29/21 Range/Units 10:34 10:34 10:34 WBC 6.7 (4.5-11.0) K/mm3 RBC 4.30 (3.65-5.03) M/mm3 Hgb 13.0 (10.1-14.3) gm/dl Hct 37.4 (30.3-42.9) % MCV 87 (79-97) fl MCH 30 (28-32) pg MCHC 35 H (30-34) % RDW 13.0 L (13.2-15.2) % Plt Count 216 (140-440) K/mm3 Lymph % (Auto) 21.3 (13.4-35.0) % [place] % (Auto) 6.6 (0.0-7.3) % Eos % (Auto) 3.3 (0.0-4.3) % Baso % (Auto) 0.8 (0.0-1.8) % Lymph # (Auto) 1.4 (1.2-5.4) K/mm3 [place] # (Auto) 0.4 (0.0-0.8) K/mm3 Eos # (Auto) 0.2 (0.0-0.4) K/mm3 Baso # (Auto) 0.1 (0.0-0.1) K/mm3 Seg Neutrophils % 68.0 (40.0-70.0) % Seg Neutrophils # 4.5 (1.8-7.7) K/mm3 Sodium 144 (137-145) mmol/L Potassium 4.5 (3.6-5.0) mmol/L Chloride 107.2 H (98-107) mmol/L Carbon Dioxide 27 (22-30) mmol/L Anion Gap 14 mmol/L BUN 13 (7-17) mg/dL Creatinine 0.9 (0.6-1.2) mg/dL Estimated GFR > 60 ml/min BUN/Creatinine Ratio 14 % Glucose 91 (65-100) mg/dL Calcium 8.8 (8.4-10.2) mg/dL Total Bilirubin 0.20 (0.1-1.2) mg/dL Direct Bilirubin < 0.2 (0-0.2) mg/dL Indirect Bilirubin 0.0 mg/dL AST 15 (5-40) units/L ALT 12 (7-56) units/L Alkaline Phosphatase 45 (35-129) units/L Total Protein 6.2 L (6.3-8.2) g/dL Albumin 3.8 L (3.9-5) g/dL Albumin/Globulin Ratio 1.6 % Lipase 20 (13-60) units/L HCG, Qual Negative (Negative) Urine Color (Yellow) Urine Turbidity (Clear) Urine pH (5.0-7.0) Ur Specific [place] (1.003-1.030) Urine Protein (Negative) mg/dL Urine Glucose (UA) (Negative) mg/dL Urine Ketones (Negative) mg/dL Urine Blood (Negative) Urine Nitrite (Negative) Urine Bilirubin (Negative) Urine Urobilinogen (<2.0) mg/dL Ur Leukocyte Esterase (Negative) Urine WBC (Auto) (0.0-6.0) /HPF Urine RBC (Auto) (0.0-6.0) /HPF U Epithel Cells (Auto) (0-13.0) /HPF Urine Mucus /HPF 06/29/21 Range/Units Unknown WBC (4.5-11.0) K/mm3 RBC (3.65-5.03) M/mm3 Hgb (10.1-14.3) gm/dl Hct (30.3-42.9) % MCV (79-97) fl MCH (28-32) pg MCHC (30-34) % RDW (13.2-15.2) % Plt Count (140-440) K/mm3 Lymph % (Auto) (13.4-35.0) % [place] % (Auto) (0.0-7.3) % Eos % (Auto) (0.0-4.3) % Baso % (Auto) (0.0-1.8) % Lymph # (Auto) (1.2-5.4) K/mm3 [place] # (Auto) (0.0-0.8) K/mm3 Eos # (Auto) (0.0-0.4) K/mm3 Baso # (Auto) (0.0-0.1) K/mm3 Seg Neutrophils % (40.0-70.0) % Seg Neutrophils # (1.8-7.7) K/mm3 Sodium (137-145) mmol/L Potassium (3.6-5.0) mmol/L Chloride (98-107) mmol/L Carbon Dioxide (22-30) mmol/L Anion Gap mmol/L BUN (7-17) mg/dL Creatinine (0.6-1.2) mg/dL Estimated GFR ml/min BUN/Creatinine Ratio % Glucose (65-100) mg/dL Calcium (8.4-10.2) mg/dL Total Bilirubin (0.1-1.2) mg/dL Direct Bilirubin (0-0.2) mg/dL Indirect Bilirubin mg/dL AST (5-40) units/L ALT (7-56) units/L Alkaline Phosphatase (35-129) units/L Total Protein (6.3-8.2) g/dL Albumin (3.9-5) g/dL Albumin/Globulin Ratio % Lipase (13-60) units/L HCG, Qual (Negative) Urine Color Yellow (Yellow) Urine Turbidity Clear (Clear) Urine pH 6.0 (5.0-7.0) Ur Specific [place] 1.023 (1.003-1.030) Urine Protein <15 mg/dl (Negative) mg/dL Urine Glucose (UA) Neg (Negative) mg/dL Urine Ketones Neg (Negative) mg/dL Urine Blood Neg (Negative) Urine Nitrite Neg (Negative) Urine Bilirubin Neg (Negative) Urine Urobilinogen < 2.0 (<2.0) mg/dL Ur Leukocyte Esterase Neg (Negative) Urine WBC (Auto) 1.0 (0.0-6.0) /HPF Urine RBC (Auto) < 1.0 (0.0-6.0) /HPF U Epithel Cells (Auto) 1.0 (0-13.0) /HPF Urine Mucus Few /HPF Vital Signs 06/29/21 09:59 Temperature 98.4 F Pulse Rate 75 Respiratory 20 Rate Blood Pressure 147/100 O2 Sat by Pulse 99 Oximetry bp elevated- a/c htn; reports taking her meds no chest pain or sob labs noted ua noted CT noted medicated with motrin for pain. Pt being dc home with dc plan of care including otc pain control and follow up with pcp/gi. On dc pt is taking PO, ambulatory and in NAD. She verbalizes understanding of discharge plan of care. - Differential Diagnosis ro abd mass/ uti Critical care attestation.: If time is entered above; I have spent that time in minutes in the direct care of this critically ill patient, excluding procedure time. ED Disposition Clinical Impression: History of hypertension Abdominal pain Qualifiers: Abdominal location: left lower quadrant Qualified Code(s): R10.32 - Left lower quadrant pain Disposition: 01 HOME / SELF CARE / HOMELESS Is pt being admited?: No Does the pt Need Aspirin: No Condition: Stable Instructions: Abdominal Pain, Adult, Abdominal Pain (ED) Additional Instructions: follow up with pcp and gi md referrals below make appnts for in 48 hours to be sure you are getting better continue your home meds stay well hydrated labs all normal today CT- incisional related tissue mass-- see GI MD -- this was also present on prior scans over the counter motrin or tylenol for pain Referrals: PRIMARY MD OLEGARIO [Primary Care Provider] - 3-5 Days BETINA ADAMSON MD [Staff Physician] - 3-5 Days KISHOR ORTIZ MD [Staff Physician] - 3-5 Days Time of Disposition: 14:14
[2021-06-29 11:11] LABS: Basophils # (Auto) 0.1 K/mm3 (0.0-0.1); Basophils % (Auto) 0.8 % (0.0-1.8); Eosinophils # (Auto) 0.2 K/mm3 (0.0-0.4); Eosinophils % (Auto) 3.3 % (0.0-4.3); Hematocrit 37.4 % (30.3-42.9); Lymphocytes # (Auto) 1.4 K/mm3 (1.2-5.4); Lymphocytes % (Auto) 21.3 % (13.4-35.0); Mean Corpuscular HGB Conc 35 % (30-34); Mean Corpuscular Volume 87 fl (79-97); Monocytes # (Auto) 0.4 K/mm3 (0.0-0.8); Monocytes % (Auto) 6.6 % (0.0-7.3); Platelet Count 216 K/mm3 (140-440)
[2021-06-29 11:40] LABS: Alanine Aminotransferase 12 units/L (7-56); Albumin 3.8 g/dL (3.9-5); BUN/Creatinine Ratio 14; Blood Urea Nitrogen 13 mg/dL (7-17); Calcium 8.8 mg/dL (8.4-10.2); Hemolysis Index 8
[2021-06-29 11:43] LABS: Bilirubin,Urine NEG (Negative); Blood,Urine NEG (Negative); Color,Urine Yellow (Yellow); Mucus,Urine FEW /HPF; Protein,Urine <15 mg/dL mg/dL (Negative); RBC,Urine < 1.0 /HPF (0.0-6.0); Urobilinogen,Urine < 2.0 mg/dL (<2.0)
[2021-06-29 11:44] LABS: Bilirubin,Direct < 0.2 mg/dL (0-0.2)
--- NOTE | 2021-06-29 13:55 | Cat Scan Report ---
CT ABDOMEN AND PELVIS WITH CONTRAST INDICATION / CLINICAL INFORMATION: Left lower quadrant mass. TECHNIQUE: Axial CT images were obtained through the abdomen and pelvis after 100 cc Omnipaque 300 IV contrast. Sagittal and coronal reformatted images. All CT scans at this location are performed using CT dose re duction for ALARA by means of automated exposure control. COMPARISON: 09/30/2019 FINDINGS: LOWER CHEST: No significant abnormality. LIVER: No significant abnormality. GALLBLADDER: No significant abnormality. BILE DUCTS: No significant abnormality. PANCREAS: No significant abnormality. SPLEEN: No significant abnormality. ADRENALS: No significant abnormality. RIGHT KIDNEY and URETER: No significant abnormality. LEFT KIDNEY and URETER: No significant abnormality. STOMACH and SMALL BOWEL: Surgical changes probably representing gastric bypass appear stable. No dila tation or inflammation. COLON: No significant abnormality. APPENDIX: No significant abnormality. PERITONEUM: No free fluid. No free air. No fluid collection. LYMPH NODES: There are multiple mildly enlarged lymph nodes in both inguinal regions. The largest lym ph node measures 1.8 cm in short axis in the left inguinal region. These appear unchanged. No intra-a bdominal or pelvic adenopathy. AORTA and ARTERIES: No significant abnormality. IVC and VEINS: No significant abnormality. URINARY BLADDER: No significant abnormality. REPRODUCTIVE ORGANS: No significant abnormality. ADDITIONAL FINDINGS: There are 2 soft tissues densities in the subcutaneous tissues of the right and left lower quadrants. On the right, the density measures 2.9 x 2.2 cm. On the left, the density measu res 6.0 x 3.5 cm. These are unchanged in appearance since 09/30/2019 exam. The etiology of this is uncl ear. These may be associated with a scar. SKELETAL SYSTEM: No significant abnormality. IMPRESSION: No acute intra-abdominal process is identified. There are 2 soft tissue density masslike lesions in the subcutaneous fat of the lower abdominal wall on both sides as described. These are unchanged since 09/30/2019 exam. These may be associated with a C -section scar. The clinical significance of this is unclear but this does not appear to be an acute i nfectious process. Chronic scarring Endometriosis Signer Name: Alexey Caldwell Jr, MD Signed: 06/29/2021 1:50 PM Workstation Name: [id number]
[2021-06-29] MEDS ORDERED: IBUPROFEN 800 MG TAB PO ONE (14:17)
== END 2021-06-29 15:00 | disposition home or self-care (01) ==
LOC: ED 09:42
DX: R10.32 Left lower quadrant pain (principal); I10 Essential (primary) hypertension; Z86.79 Personal history of other diseases of the circulatory system; Z91.018 Allergy to other foods
CPT/HCPCS: 36415; 74177; 80048; 80076; 81001; 83690; 84703; 85025; 99284; Q9967